=== PATIENT | female | born 1950 | race Caucasian/White ===

== ENCOUNTER 2020-11-07 07:59 | Inpatient (IN) | payer OTHER ==
[~2020-11-07] VITALS: Ht 157.5 cm; Wt 108.0 kg
[~2020-11-07 07:59] MED LIST: LISI20TA28 PO; METF-490 PO; PIOG15TA25 PO; SIMV-13 PO
[2020-11-07] MEDS ORDERED: PREGABALIN CAPSULE 75 MG CAP PO ONE (09:15)
[2020-11-07] MEDS ORDERED: CELECOXIB 100 MG CAP PO ONE (09:15)
[2020-11-07] MEDS ORDERED: ACETAMINOPHEN IV 1000 MG/100ML (10MG/ML) IV ONE (09:15)
[2020-11-07] MEDS ORDERED: VANCOMYCIN HCL 1000 MG VL ONE ×2 (09:23→09:34)
[2020-11-07] MEDS ORDERED: EPINEPHrine HCL 1 MG/1 ML AMP ONE (09:29)
[2020-11-07] MEDS ORDERED: TRANEXAMIC ACID 20 ML ONE (09:29)
[2020-11-07] MEDS ORDERED: BUPIVACAINE HCL 50 ML ONE (09:29)
[2020-11-07] MEDS ORDERED: TETRACAINE 1% INJ 2 ML VIAL IJ ONE (09:29)
[2020-11-07] MEDS ORDERED: PHENYLEPHRINE HCL 10 MG/ML VL IV ONE (09:30)
[2020-11-07] MEDS ORDERED: KETOROLAC TROMETH 60MG/2ML VIAL ONE (09:37)
[2020-11-07] MEDS ORDERED: MIDAZOLAM HCL 2MG/2ML 2ml VIAL (1mg/ml) ONE (09:45)
[2020-11-07] MEDS ORDERED: fentaNYL CITRATE 100 MCG/2 ML VL ONE (09:45)
[2020-11-07] MEDS ORDERED: ePHEDrine SULFATE 50 MG/ML AMP IV PRN (10:15)
[2020-11-07] MEDS ORDERED: ACCU-CHEK COMFORT CURVE STRIP VI ONE (10:15)
[2020-11-07] MEDS ORDERED: MIDAZOLAM HCL 2MG/2ML 2ml VIAL (1mg/ml) IV PRN (10:15)
[2020-11-07] MEDS ORDERED: MORPHINE SULFATE 4 MG/ML SYR/VIAL IV PRN (10:15)
[2020-11-07] MEDS ORDERED: HYDROmorphone HCL 2 MG/ML VL IV PRN (10:15)
[2020-11-07] MEDS ORDERED: ONDANSETRON HCL 4 MG/2 ML VIAL IV PRN ×2 (10:15→11:30)
[2020-11-07] MEDS ORDERED: LABETALOL HCL 5 MG/ML 4ML SYRINGE IV PRN (10:15)
[2020-11-07] MEDS ORDERED: PROPOFOL 10 MG/ML 20 ML IV ONE (10:19)
[2020-11-07] MEDS ORDERED: BISACODYL 5 MG EC TAB PO PRN (11:30)
[2020-11-07] MEDS: ACCU-CHEK COMFORT CURVE STRIP VI SCH ×3 (11:30→21:02)
[2020-11-07] MEDS ORDERED: KETOROLAC TROMETH 30 MG/ML 1ML VIAL IV PRN (11:30)
[2020-11-07] MEDS ORDERED: MORPHINE SULFATE INJECTION 2 MG/ML SYRG IV PRN (11:30)
[2020-11-07] MEDS ORDERED: NITROGLYCERIN 0.4 MG SL TAB SL PRN (11:30)
[2020-11-07] MEDS: LACTATED RINGER'S 1,000 ML IV SCH ×2 (11:50→17:58)
[2020-11-07] MEDS: SODIUM CHLOR 0.9% PF (SALINE LOCK) 10ML VIAL/SYR IV SCH ×2 (14:00→20:42)
[2020-11-07 16:55] VITALS: BP 109/78
[2020-11-07 16:57] VITALS: BP 109/78
[2020-11-07] MEDS: HYDROmorphone HCL 2 MG/ML VL IV PRN (17:14)
[2020-11-07] MEDS: metFORMIN HYDROCHLORIDE 500 MG TAB PO SCH (17:58)
[2020-11-07] MEDS: ATORVASTATIN 20 MG TAB PO SCH (20:43)
[2020-11-07] MEDS: OXYCODONE W/ ACETAMINOPHEN 5/325MG TABLET PO PRN (20:43)
[2020-11-07] MEDS: DOCUSATE SOD 100 MG CAP PO SCH (21:02)
[2020-11-07] MEDS: VANCOMYCIN 1GM/250ML 250 ML IV SCH (22:27)
[2020-11-07 23:41] VITALS: BP 97/60
[2020-11-08] MEDS: SODIUM CHLOR 0.9% PF (SALINE LOCK) 10ML VIAL/SYR IV SCH ×3 (05:00→21:54)
[2020-11-08 05:25] VITALS: BP 108/48
[2020-11-08 06:07] LABS: Hematocrit 34.5 % (36.0-46.0); Hemoglobin 11.6 g/dL (12.2-16.2)
[2020-11-08] MEDS: ACCU-CHEK COMFORT CURVE STRIP VI SCH ×4 (06:16→22:11)
[2020-11-08 06:20] LABS: Albumin 2.8 g/dL (3.4-5.0); Calcium 8.2 mg/dL (8.5-10.1); Potassium 4.2 mmol/L (3.5-5.1)
[2020-11-08 06:23] LABS: BUN/Creatinine Ratio 24.2; Bilirubin, Total 0.7 mg/dL (0.2-1.0); Total Protein 5.4 g/dL (6.4-8.2)
[2020-11-08] MEDS: OXYCODONE W/ ACETAMINOPHEN 5/325MG TABLET PO PRN ×3 (06:59→22:12)
[2020-11-08] MEDS: metFORMIN HYDROCHLORIDE 500 MG TAB PO SCH ×2 (08:08→17:50)
[2020-11-08] MEDS: DOCUSATE SOD 100 MG CAP PO SCH ×2 (08:09→21:56)
[2020-11-08] MEDS: VANCOMYCIN 1GM/250ML 250 ML IV SCH (08:09)
[2020-11-08] MEDS: PANTOPRAZOLE 40 MG TAB PO SCH (08:10)
[2020-11-08] MEDS: LISINOPRIL 20 MG TAB PO SCH (08:12)
[2020-11-08] MEDS: ENOXAPARIN SOD 40 MG/0.4 ML SYRINGE SC SCH (08:13)
[2020-11-08 09:00] VITALS: BP 99/46
[2020-11-08] MEDS: HYDROmorphone HCL 2 MG/ML VL IV PRN ×2 (10:12→17:07)
[2020-11-08 13:00] VITALS: BP 97/45
[2020-11-08 17:00] VITALS: BP 88/49
[2020-11-08] MEDS: ATORVASTATIN 20 MG TAB PO SCH (21:56)
[2020-11-08 22:00] VITALS: BP 107/50
[2020-11-09 05:00] VITALS: BP 121/75
[2020-11-09] MEDS: SODIUM CHLOR 0.9% PF (SALINE LOCK) 10ML VIAL/SYR IV SCH ×2 (06:33→12:54)
[2020-11-09] MEDS: ACCU-CHEK COMFORT CURVE STRIP VI SCH ×3 (06:33→17:00)
[2020-11-09 07:13] LABS: Hematocrit 34.1 % (36.0-46.0); Hemoglobin 11.3 g/dL (12.2-16.2)
[2020-11-09] MEDS: metFORMIN HYDROCHLORIDE 500 MG TAB PO SCH ×2 (07:43→18:04)
[2020-11-09 09:00] VITALS: BP 129/57
[2020-11-09] MEDS: DOCUSATE SOD 100 MG CAP PO SCH (09:57)
[2020-11-09] MEDS: PANTOPRAZOLE 40 MG TAB PO SCH (09:57)
[2020-11-09] MEDS: LISINOPRIL 20 MG TAB PO SCH (09:58)
[2020-11-09] MEDS: ENOXAPARIN SOD 40 MG/0.4 ML SYRINGE SC SCH (09:58)
[2020-11-09] MEDS: OXYCODONE W/ ACETAMINOPHEN 5/325MG TABLET PO PRN ×2 (09:59→18:05)
[2020-11-09 13:00] VITALS: BP 106/44
[2020-11-09] MEDS: HYDROmorphone HCL 2 MG/ML VL IV PRN (13:04)
[2020-11-09 17:00] VITALS: BP 120/53
[2020-11-09 17:16] VITALS: BP 134/79
== END 2020-11-09 18:16 | disposition home health service (06) | DRG 470 ==
LOC: SUR 07:59 → TELE 11:29 → TELE-WESTW 16:07
PROVIDERS: ADMIT Orthopaedic Surgery Adult Reconstructive Orthopaedic Surgery; ATTEND Orthopaedic Surgery Adult Reconstructive Orthopaedic Surgery
PROC: 8E0YXBZ Computer Assisted Procedure of Lower Extremity (ICD-10-PCS; 2020-11-07)
PROC: 0SRD069 Replacement of Left Knee Joint with Oxidized Zirconium on Polyethylene Synthetic Substitute, Cemented, Open Approach (ICD-10-PCS; principal; 2020-11-07 09:48)
DX: M17.12 Unilateral primary osteoarthritis, left knee (principal); I10 Essential (primary) hypertension; E78.5 Hyperlipidemia, unspecified; Z20.822 Contact with and (suspected) exposure to COVID-19; E11.9 Type 2 diabetes mellitus without complications; Z80.0 Family history of malignant neoplasm of digestive organs; Z79.899 Other long term (current) drug therapy; Z88.0 Allergy status to penicillin; Z79.84 Long term (current) use of oral hypoglycemic drugs
CPT/HCPCS: 36415; 73562; 80053; 82962; 85014; 85018; 86850; 86900; 86901; 97116; 97530; C1713; G0378; J0131; J0171; J1885; J2250; J2704; J3490